=== PATIENT | female | born 1995 | race Caucasian/White ===

== ENCOUNTER → 2018-07-29 08:30 | Outpatient (CLI) | payer MEDICAID | END | disposition home or self-care (01) | LOC: D.LDO 08:30 | DX: O36.8120 Decreased fetal movements, second trimester, not applicable or unspecified (principal); Z3A.25 25 weeks gestation of pregnancy ==

== ENCOUNTER → 2018-08-01 03:01 | Outpatient (CLI) | payer MEDICAID ==
[2018-08-01 05:03] LABS: UDS - AMPHET NEGATIVE QUAL (NEGATIVE); UDS - BARB NEGATIVE QUAL (NEGATIVE); UDS - BENZO NEGATIVE QUAL (NEGATIVE); UDS - COCAINE NEGATIVE QUAL (NEGATIVE); UDS - OPIATE NEGATIVE QUAL (NEGATIVE); UDS - PCP NEGATIVE QUAL (NEGATIVE); UDS - THC NEGATIVE QUAL (NEGATIVE)
[2018-08-01 05:27] LABS: APPEARANCE CLEAR (CLEAR); BILIRUBIN NEGATIVE (NEGATIVE); COLOR YELLOW (YELLOW); GLUCOSE NEGATIVE (NEGATIVE); KETONE NEGATIVE (NEGATIVE); NITRITE NEGATIVE (NEGATIVE); PROTEIN NEGATIVE (NEGATIVE); SPECIFIC GRAVITY 1.005 (1.005-1.020); UROBILINOGEN NORMAL (NORMAL)
== END | disposition home or self-care (01) ==
LOC: D.LDO 03:01
PROVIDERS: Obstetrics & Gynecology
DX: O26.892 Other specified pregnancy related conditions, second trimester (principal); Z3A.26 26 weeks gestation of pregnancy; R10.9 Unspecified abdominal pain

== ENCOUNTER 2018-08-27 18:32 | Outpatient (CLI) | payer SELFPAY ==
[~2018-08-27] VITALS: Ht 160 cm; Wt 74.1 kg
[2018-08-27 18:40] VITALS: Ht 160 cm; Wt 74.1 kg
[2018-08-27 20:41] LABS: BASOPHILS 0.1 % (0-2); EOSINOPHILS 1.7 % (0-7); HEMATOCRIT 25.9 % (36.0-48.0); HEMOGLOBIN 8.8 g/dL (12-16); IMMATURE GRANULOCYTES 0.9 % (0-5); LYMPHOCYTES 17.5 % (15-50); MCH 30.8 pg (26.0-34.0); MCV 90.6 fL (80.0-100.0); NEUTROPHILS 72.8 % (40-80); PLATELET COUNT 145 10x3/uL (130-400); RBC 2.86 10x6/uL (4.00-5.40); WBC 10.8 10x3/uL (4.8-10.8)
[2018-08-27 20:55] LABS: ALBUMIN 2.6 g/dL (3.4-5.0); ALKALINE PHOSPHATASE 54 U/L (46-116); ALT (SGPT) 16 U/L (10-68); BILIRUBIN - TOTAL 0.15 mg/dL (0.2-1.3); CALC OSMOLALITY 275 mosm/kg (275-300); CALCIUM 8.3 mg/dL (8.5-10.1); CARBON DIOXIDE 19.7 mmol/L (21.0-32.0); CHLORIDE - SERUM 107 mmol/L (98-107); CREATININE - SERUM 0.6 mg/dL (0.6-1.3); GLUCOSE 83 mg/dL (74-106); POTASSIUM - SERUM 3.5 mmol/L (3.5-5.1); SODIUM 140 mmol/L (136-145); UREA NITROGEN 7 mg/dL (7-18); eGFR NON AFRICAN AMERICAN > 90 mL/min (90-120)
[2018-08-27 20:58] VITALS: BP 110/71
== END 2018-08-28 01:08 | disposition home or self-care (01) ==
LOC: D.ER 18:32 → D.LDO 18:32 → EDSTATUS 20:56 → D.LD 22:43 → D.LDO 08-28 01:08
PROVIDERS: Family Medicine
DX: O26.893 Other specified pregnancy related conditions, third trimester (principal); Z3A.29 29 weeks gestation of pregnancy; R10.30 Lower abdominal pain, unspecified; V43.62XA Car passenger injured in collision with other type car in traffic accident, initial encounter; Y93.89 Activity, other specified; Y92.410 Unspecified street and highway as the place of occurrence of the external cause

== ENCOUNTER → 2018-09-25 11:27 | Outpatient (CLI) | payer SELFPAY ==
[~2018-09-25] VITALS: Ht 160 cm; Wt 77.7 kg
[2018-09-25 11:36] VITALS: BP 119/73; Ht 160 cm; Wt 77.7 kg
[2018-09-25 12:02] LABS: BASOPHILS 0.1 % (0-2); EOSINOPHILS 1.4 % (0-7); HEMATOCRIT 27.5 % (36.0-48.0); HEMOGLOBIN 9.4 g/dL (12-16); IMMATURE GRANULOCYTES 1.2 % (0-5); LYMPHOCYTES 15.8 % (15-50); MCH 30.8 pg (26.0-34.0); MCHC 34.2 g/dL (31.0-37.0); MCV 90.2 fL (80.0-100.0); MEAN PLATELET VOLUME 9.1 fL (7.4-10.4); MONOCYTES 7.2 % (2-11); NEUTROPHILS 74.3 % (40-80); PLATELET COUNT 129 10x3/uL (130-400); RBC 3.05 10x6/uL (4.00-5.40); WBC 8.1 10x3/uL (4.8-10.8)
== END | disposition home or self-care (01) ==
LOC: D.LDO 11:27 → D.ER 11:27 → EDSTATUS 12:10
PROVIDERS: Family Medicine; ATTEND Obstetrics & Gynecology
DX: O26.893 Other specified pregnancy related conditions, third trimester (principal); R05 Cough

== ENCOUNTER → 2018-10-03 16:06 | Outpatient (CLI) | payer MEDICAID ==
[2018-09-25 11:36] VITALS: BMI 30.3
[~2018-10-03 16:06] MED LIST: FERROUS SULFAT325 MG PO
[2018-10-03 17:22] LABS: UDS - AMPHET NEGATIVE QUAL (NEGATIVE); UDS - BARB NEGATIVE QUAL (NEGATIVE); UDS - BENZO NEGATIVE QUAL (NEGATIVE); UDS - COCAINE NEGATIVE QUAL (NEGATIVE); UDS - OPIATE POSITIVE QUAL (NEGATIVE); UDS - PCP NEGATIVE QUAL (NEGATIVE); UDS - THC NEGATIVE QUAL (NEGATIVE)
[2018-10-03 19:33] LABS: APPEARANCE CLEAR (CLEAR); BILIRUBIN NEGATIVE (NEGATIVE); COLOR YELLOW (YELLOW); GLUCOSE NEGATIVE (NEGATIVE); KETONE NEGATIVE (NEGATIVE); NITRITE NEGATIVE (NEGATIVE); PROTEIN NEGATIVE (NEGATIVE); UROBILINOGEN NORMAL (NORMAL)
== END | disposition home or self-care (01) ==
LOC: D.LDO 16:06
PROVIDERS: ATTEND Obstetrics & Gynecology
DX: O47.03 False labor before 37 completed weeks of gestation, third trimester (principal); Z3A.35 35 weeks gestation of pregnancy

== ENCOUNTER 2018-10-04 13:09 | Outpatient (CLI) | payer MEDICAID ==
[2018-09-25 11:36] VITALS: BMI 30.3
[2018-10-05] MEDS ORDERED: FERROUS SULFAT325 MG PO (06:05)
[2018-10-05 14:02] VITALS: BP 105/55
== END 2018-10-05 15:03 ==
LOC: D.LDO 13:09 → D.LD 23:47 → D.LDO 10-05 15:03
PROVIDERS: ATTEND Obstetrics & Gynecology
DX: O26.893 Other specified pregnancy related conditions, third trimester (principal); Z3A.34 34 weeks gestation of pregnancy

== ENCOUNTER → 2018-10-20 21:27 | Outpatient (CLI) | payer MEDICAID ==
[2018-09-25 11:36] VITALS: BMI 30.3
[~2018-10-20 21:27] MED LIST changes: +ACETAMINOPHEN500 M1
== END | disposition home or self-care (01) ==
LOC: D.LDO 21:27
PROVIDERS: ATTEND Obstetrics & Gynecology
DX: O26.893 Other specified pregnancy related conditions, third trimester (principal); Z3A.37 37 weeks gestation of pregnancy

== ENCOUNTER → 2018-10-24 13:12 | Outpatient (CLI) | payer MEDICAID ==
[2018-09-25 11:36] VITALS: BMI 30.3
[2018-10-24 14:24] LABS: APPEARANCE CLEAR (CLEAR); BILIRUBIN NEGATIVE (NEGATIVE); COLOR YELLOW (YELLOW); GLUCOSE NEGATIVE (NEGATIVE); KETONE NEGATIVE (NEGATIVE); NITRITE NEGATIVE (NEGATIVE); PROTEIN NEGATIVE (NEGATIVE); SPECIFIC GRAVITY 1.005 (1.005-1.020); UROBILINOGEN NORMAL (NORMAL)
[2018-10-24 14:28] LABS: EPITHELIAL CELLS 0-5 /hpf (0-5); MUCUS <1+ /lpf (NONE SEEN); RED CELLS - URINE 0-5 /hpf (0-5); WHITE CELLS - URINE OCC /hpf (0-5)
[2018-10-24 14:29] LABS: AMORPHOUS SEDIMENT <1+ /lpf (NONE SEEN); BACTERIA FEW /hpf (NONE SEEN); YEAST <1+ /hpf (NONE SEEN)
[2018-10-25 09:00] VITALS: BMI 31.5
== END | disposition home or self-care (01) ==
LOC: D.LDO 13:12
PROVIDERS: ATTEND Obstetrics & Gynecology
DX: O26.899 Other specified pregnancy related conditions, unspecified trimester (principal); Z3A.00 Weeks of gestation of pregnancy not specified

== ENCOUNTER 2018-10-25 04:05 | Inpatient (IN) | payer MEDICAID ==
[~2018-10-25] VITALS: Ht 157.5 cm; Wt 78.0 kg
[2018-10-25 08:35] LABS: HEMATOCRIT 28.3 % (36.0-48.0); HEMOGLOBIN 9.8 g/dL (12-16); MCH 30.9 pg (26.0-34.0); MCHC 34.6 g/dL (31.0-37.0); MCV 89.3 fL (80.0-100.0); MEAN PLATELET VOLUME 9.5 fL (7.4-10.4); RBC 3.17 10x6/uL (4.00-5.40); RDW 13.5 % (11.5-14.5); WBC 10.5 10x3/uL (4.8-10.8)
[2018-10-25 08:48] LABS: APPEARANCE HAZY (CLEAR); BILIRUBIN NEGATIVE (NEGATIVE); COLOR YELLOW (YELLOW); GLUCOSE NEGATIVE (NEGATIVE); KETONE NEGATIVE (NEGATIVE); NITRITE NEGATIVE (NEGATIVE); PROTEIN NEGATIVE (NEGATIVE); UROBILINOGEN NORMAL (NORMAL)
[2018-10-25 08:49] LABS: BACTERIA FEW /hpf (NONE SEEN); EPITHELIAL CELLS 0-5 /hpf (0-5); MUCUS <1+ /lpf (NONE SEEN); WHITE CELLS - URINE 0-5 /hpf (0-5)
[2018-10-25 09:00] VITALS: BP 127/73; Ht 157.5 cm; Wt 78.0 kg
[2018-10-25 19:39] LABS: BASOPHILS 0.1 % (0-2); EOSINOPHILS 0.3 % (0-7); HEMATOCRIT 24.9 % (36.0-48.0); HEMOGLOBIN 8.4 g/dL (12-16); IMMATURE GRANULOCYTES 0.5 % (0-5); LYMPHOCYTES 11.2 % (15-50); MCH 30.2 pg (26.0-34.0); MCHC 33.7 g/dL (31.0-37.0); MCV 89.6 fL (80.0-100.0); MEAN PLATELET VOLUME 9.7 fL (7.4-10.4); MONOCYTES 5.3 % (2-11); NEUTROPHILS 82.6 % (40-80); PLATELET COUNT 122 10x3/uL (130-400); RBC 2.78 10x6/uL (4.00-5.40); RDW 13.5 % (11.5-14.5); WBC 11.7 10x3/uL (4.8-10.8)
[2018-10-26 00:51] LABS: BASOPHILS 0.1 % (0-2); EOSINOPHILS 0.1 % (0-7); HEMOGLOBIN 10.9 g/dL (12-16); IMMATURE GRANULOCYTES 0.6 % (0-5); LYMPHOCYTES 9.5 % (15-50); MCH 30.4 pg (26.0-34.0); MCHC 34.8 g/dL (31.0-37.0); MEAN PLATELET VOLUME 9.6 fL (7.4-10.4); MONOCYTES 6.4 % (2-11); NEUTROPHILS 83.3 % (40-80); RBC 3.58 10x6/uL (4.00-5.40); WBC 16.5 10x3/uL (4.8-10.8)
[2018-10-26 00:52] LABS: HEMATOCRIT 31.3 % (36.0-48.0); MCV 87.4 fL (80.0-100.0); PLATELET COUNT 96 10x3/uL (130-400)
[2018-10-26 01:08] LABS: PLATELET ESTIMATE DECREASED
[2018-10-26 01:51] VITALS: BP 110/67
[2018-10-26 06:40] LABS: BASOPHILS 0.1 % (0-2); EOSINOPHILS 0.4 % (0-7); HEMATOCRIT 27.8 % (36.0-48.0); HEMOGLOBIN 9.6 g/dL (12-16); IMMATURE GRANULOCYTES 0.6 % (0-5); LYMPHOCYTES 13.2 % (15-50); MCH 29.9 pg (26.0-34.0); MCHC 34.5 g/dL (31.0-37.0); MCV 86.6 fL (80.0-100.0); MEAN PLATELET VOLUME 9.5 fL (7.4-10.4); MONOCYTES 8.8 % (2-11); NEUTROPHILS 76.9 % (40-80); PLATELET COUNT 97 10x3/uL (130-400); RBC 3.21 10x6/uL (4.00-5.40); RDW 14.2 % (11.5-14.5)
[2018-10-26 07:45] VITALS: BP 105/58
[2018-10-26 10:53] VITALS: BP 101/57
[2018-10-26 12:45] LABS: HEMATOCRIT 26.9 % (36.0-48.0); HEMOGLOBIN 9.4 g/dL (12-16); MCH 30.3 pg (26.0-34.0); MCHC 34.9 g/dL (31.0-37.0); MCV 86.8 fL (80.0-100.0); MEAN PLATELET VOLUME 9.5 fL (7.4-10.4); RBC 3.1 10x6/uL (4.00-5.40); RDW 14.5 % (11.5-14.5); WBC 15.8 10x3/uL (4.8-10.8)
[2018-10-26 13:50] VITALS: BP 111/62
[2018-10-26 15:47] LABS: INR 1.09 (0.85-1.17); PROTIME 13.6 SECONDS (11.6-15.0)
[2018-10-26 15:48] LABS: D-DIMER-QUANTITATIVE 3.32 ug/mLFEU (0.20-0.54)
[2018-10-26 16:15] VITALS: BP 110/70
[2018-10-26 19:15] VITALS: BP 114/64
[2018-10-27 07:04] LABS: BASOPHILS 0.1 % (0-2); EOSINOPHILS 1.1 % (0-7); HEMATOCRIT 27.9 % (36.0-48.0); HEMOGLOBIN 9.7 g/dL (12-16); IMMATURE GRANULOCYTES 0.8 % (0-5); LYMPHOCYTES 16.6 % (15-50); MCH 30.5 pg (26.0-34.0); MCHC 34.8 g/dL (31.0-37.0); MCV 87.7 fL (80.0-100.0); MEAN PLATELET VOLUME 9.6 fL (7.4-10.4); MONOCYTES 6.9 % (2-11); NEUTROPHILS 74.5 % (40-80); PLATELET COUNT 113 10x3/uL (130-400); RBC 3.18 10x6/uL (4.00-5.40); RDW 14.7 % (11.5-14.5); WBC 13.8 10x3/uL (4.8-10.8)
[2018-10-27 08:30] VITALS: BP 115/70
== END 2018-10-27 13:45 | disposition home or self-care (01) | DRG 806 ==
LOC: D.LDO 04:05 → D.LD 07:36
PROVIDERS: Obstetrics & Gynecology; ADMIT Obstetrics & Gynecology; ATTEND Obstetrics & Gynecology
PROC: 10907ZC Drainage of Amniotic Fluid, Therapeutic from Products of Conception, Via Natural or Artificial Opening (ICD-10-PCS; principal; 2018-10-25)
PROC: 10E0XZZ Delivery of Products of Conception, External Approach (ICD-10-PCS; 2018-10-25)
PROC: 0HQ9XZZ Repair Perineum Skin, External Approach (ICD-10-PCS; 2018-10-25)
DX: O36.63X0 Maternal care for excessive fetal growth, third trimester, not applicable or unspecified (principal); O71.3 Obstetric laceration of cervix; Z37.0 Single live birth; O72.2 Delayed and secondary postpartum hemorrhage; D62 Acute posthemorrhagic anemia; O99.12 Other diseases of the blood and blood-forming organs and certain disorders involving the immune mechanism complicating childbirth; Z3A.38 38 weeks gestation of pregnancy; O99.02 Anemia complicating childbirth; O70.0 First degree perineal laceration during delivery; O62.2 Other uterine inertia